=== PATIENT | male | born 1995 | race American Indian/Alaskan Native ===

== ENCOUNTER 2018-06-30 20:48 | Emergency (ER) | payer OTHER ==
[~2018-06-30] VITALS: Ht 180.3 cm; Wt 109.1 kg
[2018-06-30] MEDS ORDERED: MORPHINE 10 MG/ML 1ML VIAL (J2270) IM ONE (22:00)
[2018-06-30 22:37] VITALS: BP 135/81
--- NOTE | 2018-07-01 08:57 | REP ---
RIGHT SHOULDER, TWO VIEWS: Two views of the right shoulder are performed. There is anterior dislocation of the humeral head out of the glenoid fossa. No definite fracture is seen of the visualized osseous structures. IMPRESSION: Anterior dislocation. Electronically Signed by Fermin Aguilera MD 07/01/2018 12:42 P
--- NOTE | 2018-07-01 08:57 | REP ---
RIGHT SHOULDER, TWO VIEWS: Two postreduction views of the right shoulder are performed. Humeral head is located in the glenoid fossa, with reduction of the previously noted dislocation. No definite fracture is seen of the visualized osseous structures. IMPRESSION: Successful reduction of previously noted anterior dislocation. No definite fracture. Electronically Signed by Fermin Aguilera MD 07/01/2018 12:42 P
== END 2018-06-30 22:40 | disposition home or self-care (01) ==
LOC: M ED 20:48
DX: M24.411 Recurrent dislocation, right shoulder (principal); S43.014A Anterior dislocation of right humerus, initial encounter; X50.1XXA Overexertion from prolonged static or awkward postures, initial encounter; Y92.096 Garden or yard of other non-institutional residence as the place of occurrence of the external cause; Y93.67 Activity, basketball
CPT/HCPCS: 23650; 73030; 96372; 99283; J2270

== ENCOUNTER 2019-04-23 22:15 | Emergency (ER) | payer OTHER ==
[~2019-04-23] VITALS: Ht 177.8 cm; Wt 116.1 kg
[2019-04-23] MEDS ORDERED: NS 1,000 ML IV ONE (22:45)
[2019-04-23 22:57] LABS: BASO % 0.4 % (0.0-1.0); EOS # 0.1 10^3/uL (0.0-0.5); EOS % 1.3 % (0.0-3.0); HEMATOCRIT 46.2 % (42.0-52.0); HEMOGLOBIN 15.8 g/dl (13.5-17.5); LYMPH # 2.1 10^3/uL (1.5-5.0); LYMPH % 30.2 % (24.0-44.0); MEAN CORPUSCULAR HEMOGLOBIN 29.9 pg (27.0-33.0); MEAN CORPUSCULAR HGB CONC 34.2 g/dl (32.0-36.5); MEAN CORPUSCULAR VOLUME 87.5 fl (80.0-96.0); MONO # 0.4 10^3/uL (0.0-0.8); MONO % 5.9 % (0.0-5.0); NEUTROPHILS # 4.2 10^3/uL (1.5-8.5); NEUTROPHILS % 61.6 % (36.0-66.0); PLATELET COUNT, AUTOMATED 231 10^3/uL (150-450); RED BLOOD COUNT 5.28 10^6/uL (4.30-6.10); WHITE BLOOD COUNT 6.8 10^3/uL (4.0-10.0)
[2019-04-23 23:36] LABS: ACETAMINOPHEN LEVEL < 2.0 UG/ML (10.0-30.0); ALBUMIN 4.2 GM/DL (3.2-5.2); ALT/SGPT 49 U/L (12-78); AMPHETAMINES LEVEL URINE NEGATIVE (NEGATIVE); BARBITURATES URINE NEGATIVE (NEGATIVE); BENZODIAZEPINES URINE POSITIVE (NEGATIVE); BILIRUBIN,DIRECT < 0.1 MG/DL (0.0-0.2); BILIRUBIN,TOTAL 0.3 MG/DL (0.2-1.0); BLOOD UREA NITROGEN 6 MG/DL (7-18); CANNABINOIDS URINE NEGATIVE (NEGATIVE); CARBON DIOXIDE LEVEL 25 MEQ/L (21-32); CHLORIDE LEVEL 110 MEQ/L (98-107); COCAINE METABOLITE URINE NEGATIVE (NEGATIVE); CPK CREATINE PHOSPHOKINASE 668 U/L (39-308); CREATININE FOR GFR 0.71 MG/DL (0.70-1.30); ETHYL ALCOHOL (ETHANOL) < 0.003 % (0.000-0.010); GLOMERULAR FILTRATION RATE > 60.0 (>60); GLUCOSE, FASTING 77 MG/DL (70-100); METHADONE URINE NEGATIVE (NEGATIVE); OPIATES URINE NEGATIVE (NEGATIVE); PHENCYCLIDINE URINE POSITIVE (NEGATIVE); POTASSIUM SERUM 3.8 MEQ/L (3.5-5.1); SALICYLATE LEVEL < 1.7 MG/DL (5.0-30.0); SODIUM LEVEL 141 MEQ/L (136-145); THYROID STIMULATING HORMONE 0.431 uIU/ML (0.358-3.740); TOTAL PROTEIN 7.1 GM/DL (6.4-8.2)
[2019-04-24] MEDS ORDERED: NS 1,000 ML IV ONE (00:30)
--- NOTE | 2019-04-24 01:11 | REPVR ---
PROCEDURE INFORMATION: Exam: CT Head Without Contrast Exam date and time: 04/24/2019 12:49 AM Age: 23 years old Clinical indication: Altered mental status/memory loss; Confusion or disorientation; Additional info: AMS TECHNIQUE: Imaging protocol: Computed tomography of the head without contrast. Radiation optimization: All CT scans at this facility use at least one of these dose optimization techniques: automated exposure control; mA and/or kV adjustment per patient size (includes targeted exams where dose is matched to clinical indication); or iterative reconstruction. COMPARISON: No relevant prior studies available. FINDINGS: Brain: Normal. No hemorrhage. Unremarkable white matter. No mass effect. Ventricles: Normal. No ventriculomegaly. Bones/joints: Unremarkable. No acute fracture. Sinuses: Visualized sinuses are unremarkable. No fluid levels. Mastoid air cells: Visualized mastoid air cells are well aerated. Soft tissues: Unremarkable. IMPRESSION: No acute intracranial abnormality. Electronically signed by: Mode Hatfield On 04/24/2019 01:11:11 AM
[2019-04-24 03:33] LABS: BLOOD UREA NITROGEN 5 MG/DL (7-18); CARBON DIOXIDE LEVEL 26 MEQ/L (21-32); CHLORIDE LEVEL 114 MEQ/L (98-107); CREATININE FOR GFR 0.66 MG/DL (0.70-1.30); GLOMERULAR FILTRATION RATE > 60.0 (>60); GLUCOSE, FASTING 83 MG/DL (70-100); POTASSIUM SERUM 3.8 MEQ/L (3.5-5.1); SODIUM LEVEL 145 MEQ/L (136-145)
[2019-04-24 03:48] LABS: CPK CREATINE PHOSPHOKINASE 539 U/L (39-308)
[2019-04-24] MEDS ORDERED: METAL LOCK LOOP XX ONE (03:55)
[2019-04-24 04:15] VITALS: BP 143/78
--- NOTE | 2019-04-24 08:37 | ECGEPIP ---
[facility] - ED Test Date: 2019-04-23 Pat Name: BRISEIDA CHANDRA Department: Room: - Gender: Male Health Science Specialist: SB : [id number] Requested By: IMMANUEL Lawson Order Number: [id number] Reading MD: Tara Jimenez Measurements Intervals [place] Rate: 81 P: 50 MS: 140 QRS: 21 QRSD: 110 T: 29 QT: 357 QTc: 415 Interpretive Statements SINUS RHYTHM NO PRIOR Electronically Signed on 04-24-2019 8:37:14 EST by Tara Jimenez
== END 2019-04-24 05:03 | disposition home or self-care (01) ==
LOC: M ED 22:15
DX: R41.82 Altered mental status, unspecified (principal)
CPT/HCPCS: 70450; 80048; 80076; 80307; 82550; 82803; 84443; 85025; 93005; 93041; 94760; 96360; 96361; 99285; G0480